=== PATIENT | male | born 1975 | race Two or more races ===

== ENCOUNTER 2020-06-11 20:07 | Emergency (ER) | payer MEDICAID ==
[~2020-06-11] VITALS: Ht 185.4 cm; Wt 79.4 kg
[2020-06-11 20:15] VITALS: BP 124/87
== END 2020-06-11 21:40 | disposition home or self-care (01) ==
LOC: ER 20:07
DX: S61.432A Puncture wound without foreign body of left hand, initial encounter (principal); X58.XXXA Exposure to other specified factors, initial encounter; Y93.89 Activity, other specified; Y92.89 Other specified places as the place of occurrence of the external cause; Y99.8 Other external cause status